=== PATIENT | female | born 1980 | race Caucasian/White ===

== ENCOUNTER → 2022-08-03 11:34 | Outpatient (CLI) | payer OTHER, SELFPAY ==
--- NOTE | 2022-08-03 11:43 | DI.RAD.S_ITS ---
PROCEDURE: XR SHOULDER RT MIN 2V INDICATIONS: RIGHT SHOULDER PAIN TECHNIQUE: Three views of the shoulder were acquired. COMPARISON: None. FINDINGS: Bones: No fractures or dislocations. On the given views, the glenoid fossa appears blunted and sclerotic. No suspicious bony lesions. Visualized ribs appear intact. Soft tissues: No suspicious soft tissue calcifications. IMPRESSION: 1. Possibly abnormal glenoid morphology may predispose to early degeneration. Consider MRI for further evaluation Dictated by: Iram Doty M.D. on 08/03/2022 at 22:16 Approved by: Iram Doty M.D. on 08/03/2022 at 22:19
== END ==
PROVIDERS: Referring Provider Physician Assistant; Visit Provider Physician Assistant
DX: M25.511 Pain in right shoulder (principal)
CPT/HCPCS: 73030